=== PATIENT | female | born 1940 | race Caucasian/White ===

== ENCOUNTER → 2020-01-09 08:40 | Outpatient (CLI) | payer MEDICARE, BC, SELFPAY ==
--- NOTE | ~2020-01-09 | MR_ITS ---
EXAMINATION: MR lumbar spine wo con DATE: 01/09/2020 09:40 INDICATION: Lumbar radiculopathy. TECHNIQUE: Magnetic resonance imaging (MRI) of the lumbar spine was performed without intravenous con trast. Sequences included sagittal T2-weighted FSE, sagittal STIR FSE, sagittal T1-weighted FSE, and axial T2-weighted FSE. COMPARISON: None FINDINGS: There is 3 mm retrolisthesis of T12 on L1, 4 mm retrolisthesis of L1 on L2 and L2 on L3, an d 4 mm anterolisthesis of L4 on L5 and L5 on S1. Vertebral body heights are normal. There is severely decreased disc height from T12-L1 through L2-L3, mildly decreased disc height at L3-L4, and severely decreased disc height at L4-L5 and L5-S1. There are changes of posterior fusion procedure at L4-L5 w ith pedicle screws. There is ligamentum flavum hypertrophy at the disc levels from L1-L2 through L3-L 4 and at L5-S1. The distal spinal cord signal intensity is normal. The conus medullaris is at L1. Par tially visualized are cysts in the kidneys measuring up to 2.2 cm on the right. The following disc le vels are specifically discussed: T12-L1: The disc is bulging and has an annular fissure. There is severe bilateral facet joint osteoar thritis. There is mild bilateral neural foraminal stenosis. There is mild central canal stenosis. L1-L2: The disc is bulging and has an annular fissure. There is severe bilateral facet joint osteoart hritis. There is mild right and moderate left neural foraminal stenosis. There is mild central canal stenosis. L2-L3: The disc is bulging and has an annular fissure. There is severe bilateral facet joint osteoart hritis. There is moderate right and mild left neural foraminal stenosis. There is mild central canal stenosis. L3-L4: The disc is bulging and has an annular fissure. There is severe bilateral facet joint osteoart hritis. There is mild bilateral neural foraminal stenosis. There is mild central canal stenosis. L4-L5: The disc does not extend beyond the endplate margin. 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 There is mild bilateral neural foraminal stenosis. There is no central canal s tenosis. L5-S1: The disc is bulging and has an annular fissure. There is severe bilateral facet joint osteoart hritis. There is mild right and moderate left neural foraminal stenosis. There is mild central canal stenosis. IMPRESSION: 1. Severe lumbar spondylosis. 2. Posterior fusion procedure at L4-L5. Reviewed, dictated and finalized at location B. ONOLOGIST INTENSIVIST
--- NOTE | ~2020-01-09 | XR_ITS ---
EXAMINATION: XR lumbar spine 6V w bending DATE: 01/09/2020 10:11 INDICATION: Lumbar radiculopathy. TECHNIQUE: 7 views of lumbar spine including flexion and extension views were obtained. COMPARISON: Lumbar spine MRI 01/09/2020 FINDINGS: There is 4 mm retrolisthesis of L1 on L2 and L2 on L3 and 4 mm anterolisthesis of L4 on L5 and L5 on S1. There is no abnormal motion with flexion or extension. Vertebral body heights are dc l. There is severely decreased disc height from T12-L1 through L2-L3, mildly decreased disc height at L3-L4, and severely decreased disc height at L4-L5 and L5-S1. There are changes of posterior fusion procedure at L4-L5 with pedicle screws. There is multilevel severe facet joint osteoarthritis. There are surgical clips in the abdomen. IMPRESSION: 1. Severe lumbar spondylosis. 2. Posterior fusion procedure at L4-L5. Reviewed, dictated and finalized at location B. OFFICIAL
== END ==
PROVIDERS: PCP Family Medicine; Visit Provider Nurse Practitioner Adult Health
DX: M47.26 Other spondylosis with radiculopathy, lumbar region (principal); Z98.1 Arthrodesis status
CPT/HCPCS: 72114; 72148